=== PATIENT | female | born 1955 | race Two or more races ===

== ENCOUNTER 2023-02-04 16:37 | Emergency (ER) | payer OTHER ==
[~2023-02-04] VITALS: Ht 162.6 cm; Wt 106.5 kg
[2023-02-04] MEDS ORDERED: IBUP-1454 PO (23:16)
[2023-02-04] MEDS ORDERED: ACE3T PO (23:44)
[2023-02-04] MEDS ORDERED: ACET500T58 PO (23:47)
[2023-02-05 06:48] VITALS: BP 120/74; PULSE 78; RESP 20; TEMP 98.4; O2SAT 98
== END 2023-02-04 23:49 | disposition home or self-care (01) ==
LOC: ER 16:37
DX: S01.01XA Laceration without foreign body of scalp, initial encounter (principal); S09.90XA Unspecified injury of head, initial encounter; W22.8XXA Striking against or struck by other objects, initial encounter; Y93.89 Activity, other specified; Y92.89 Other specified places as the place of occurrence of the external cause; Y99.8 Other external cause status
CPT/HCPCS: 70450